=== PATIENT | female | born 1955 | race Caucasian/White ===

== ENCOUNTER 2018-10-14 16:11 | Observation (INO) ==
--- NOTE | 2018-10-14 17:00 | ED ---
HPI General Chief Complaint: Chest Pain Stated Complaint: Chest Discomfort/Palp Time Seen by Provider: 10/14/18 16:42 History of Present Illness HPI narrative: Patient is a 63-year-old female with history of breast cancer, presented to emergency room for chest pain and palpitations started 3 hours ago. Palpitations resolved, chest pain improved but still as per patient 5 out of 10. Patient denies dyspnea, anxiety, fever. As per patient heart rate was above 100. Vital signs are stable in the emergency room. Aspirin and nitroglycerin given. Related Data Home Medications Medication Instructions Recorded Confirmed ranitidine HCl [Zantac] 150 mg PO BID 10/14/18 10/14/18 zolpidem [Ambien] 10 mg PO HS PRN 10/14/18 10/14/18 Allergies Allergy/AdvReac Type Severity Reaction Status Date / Time meperidine Allergy Severe HIVES/SWELL Verified 10/14/18 16:41 ING metronidazole Allergy Severe kidneys Verified 10/14/18 16:41 shut down codeine Allergy Mild Vomiting Verified 10/14/18 16:41 penicillin G Allergy Mild Rash Verified 10/14/18 16:41 Sulfa (Sulfonamide Allergy Mild Rash Verified 10/14/18 16:41 Antibiotics) Review of Systems ROS: all other systems reviewed are negative Cardiovascular Reports chest pain and Reports rapid heart rate [facility] Medical History Medical History Breast cancer (Acute) Stomach ulcer (Acute) Surgical History Surgical History Hx of breast reconstruction (Acute) Hx of lumpectomy (Acute) Social History Social History Second Hand Smoke Exposure: No Smoking Status: Never smoker How Often Do You Have a Drink Containing Alcohol: Never Recent Travel in [facility] within the Last 8 Weeks: No Recent Out of Country Travel within the Last 8 Weeks: No Immunization History Tetanus Immunization: <5 Years Exam Narrative Exam Narrative: GENERAL: 63-year-old female in no apparent distress. SKIN: Focused skin assessment warm/dry. HEAD: Atraumatic. Normocephalic. EYES: Pupils equal and round. No scleral icterus. No injection or drainage. ENT: No nasal bleeding or discharge. Mucous membranes pink and moist. NECK: Trachea midline. No JVD. CARDIOVASCULAR: Regular rate and rhythm. No murmur appreciated. RESPIRATORY: No accessory muscle use. Clear to auscultation. Breath sounds equal bilaterally. GASTROINTESTINAL: Abdomen soft, non-tender, nondistended. Hepatic and splenic margins not palpable. MUSCULOSKELETAL: No obvious deformities. No clubbing. No cyanosis. No edema. NEUROLOGICAL: Awake and alert. No obvious cranial nerve deficits. Motor grossly within normal limits. Normal speech. PSYCHIATRIC: Appropriate mood and affect; insight and judgment normal. Course Initial Documented Vital Signs Temperature 97.9 F 10/14/18 16:42 Pulse Rate 73 10/14/18 16:42 Respiratory Rate 20 10/14/18 16:42 Blood Pressure 159/71 H 10/14/18 16:42 Pulse Oximetry 97 10/14/18 16:42 Last Documented Vital Signs Temperature 97.9 F 10/14/18 16:42 Pulse Rate 81 10/14/18 16:44 Respiratory Rate 14 10/14/18 16:44 Blood Pressure 150/70 H 10/14/18 16:44 Pulse Oximetry 100 10/14/18 16:44 Medical Decision Making MDM Narrative Medical decision making narrative: 63-year-old female presented with chest pain and palpitations, cardiac and PE workup ordered. Reevaluation is pending. Aspirin and nitroglycerin given. First set of cardiac enzymes is negative. CAT scan is negative for pulmonary embolism. Patient feels better in the emergency room, will be placed to [place] pain [place] [facility] Medical Screen Exam Complete: Yes Emergency Medical Condition: Yes Differential Diagnosis Differential Diagnosis: Chest pain rule out ACS versus PE. Lab Data Result diagrams: 10/14/18 16:45 10/14/18 16:45 Lab Results 10/14/18 10/14/18 10/14/18 Range/Units 16:45 16:45 16:45 CBC w Diff Auto diff final WBC 6.5 (4.0-11.0) th/mm3 RBC 4.32 (4.00-5.30) mil/mm3 Hgb 13.3 (11.6-15.3) gm/dL Hct 39.8 (35.0-46.0) % MCV 92.2 (80.0-100.0) fL MCH 30.7 (27.0-34.0) pg MCHC 33.3 (32.0-36.0) % RDW 12.9 (11.6-17.2) % Plt Count 248 (150-450) th/mm3 MPV 8.2 (7.0-11.0) fL Neut % (Auto) 60.0 (16.0-70.0) % Lymph % (Auto) 31.3 (9.0-44.0) % [place] % (Auto) 6.8 (0.0-8.0) % Eos % (Auto) 1.5 (0.0-4.0) % Baso % (Auto) 0.4 (0.0-2.0) % Neut # (Auto) 4.0 (1.8-7.7) th/mm3 Lymph # (Auto) 2.0 (1.0-4.8) th/mm3 [place]entry # (Auto) 0.4 (0.0-0.9) th/mm3 Eos # (Auto) 0.1 (0.0-0.4) th/mm3 Baso # (Auto) 0.0 (0.0-0.2) th/mm3 WBC Differential . Differential Comment . PT 10.0 (9.8-11.6) sec INR 1.0 Ratio APTT 26.6 (23.4-31.7) sec Sodium 139 (136-145) meq/L Potassium 3.6 (3.5-5.1) meq/L Chloride 103 (98-107) meq/L Carbon Dioxide 28.5 (21.0-32.0) meq/L Anion Gap 8 (5-15) meq/L BUN 13 (7-18) mg/dL Creatinine 0.65 (0.50-1.00) mg/dL Estimated GFR Greater than 89 (>89) mL/min Random Glucose 101 (74-106) mg/dL Calcium 8.5 (8.5-10.1) mg/dL Total Bilirubin 0.3 (0.2-1.0) mg/dL AST 21 (15-37) U/L ALT 23 (10-53) U/L Alkaline Phosphatase 86 (45-117) U/L Troponin I Less than 0.02 L (0.02-0.05) ng/mL B-Natriuretic Peptide (0-100) pg/mL Total Protein 7.7 (6.4-8.2) g/dL Albumin 4.0 (3.4-5.0) g/dL 10/14/18 Range/Units 16:45 CBC w Diff WBC (4.0-11.0) th/mm3 RBC (4.00-5.30) mil/mm3 Hgb (11.6-15.3) gm/dL Hct (35.0-46.0) % MCV (80.0-100.0) fL MCH (27.0-34.0) pg MCHC (32.0-36.0) % RDW (11.6-17.2) % Plt Count (150-450) th/mm3 MPV (7.0-11.0) fL Neut % (Auto) (16.0-70.0) % Lymph % (Auto) (9.0-44.0) % Gentry % (Auto) (0.0-8.0) % Eos % (Auto) (0.0-4.0) % Baso % (Auto) (0.0-2.0) % Neut # (Auto) (1.8-7.7) th/mm3 Lymph # (Auto) (1.0-4.8) th/mm3 Gentry # (Auto) (0.0-0.9) th/mm3 Eos # (Auto) (0.0-0.4) th/mm3 Baso # (Auto) (0.0-0.2) th/mm3 WBC Differential Differential Comment PT (9.8-11.6) sec INR Ratio APTT (23.4-31.7) sec Sodium (136-145) meq/L Potassium (3.5-5.1) meq/L Chloride (98-107) meq/L Carbon Dioxide (21.0-32.0) meq/L Anion Gap (5-15) meq/L BUN (7-18) mg/dL Creatinine (0.50-1.00) mg/dL Estimated GFR (>89) mL/min Random Glucose (74-106) mg/dL Calcium (8.5-10.1) mg/dL Total Bilirubin (0.2-1.0) mg/dL AST (15-37) U/L ALT (10-53) U/L Alkaline Phosphatase (45-117) U/L Troponin I (0.02-0.05) ng/mL B-Natriuretic Peptide 17 (0-100) pg/mL Total Protein (6.4-8.2) g/dL Albumin (3.4-5.0) g/dL Imaging Data Radiologist's impression: Chest X-Ray 10/14/18 16:54 CONCLUSION: Negative examination. Chest CTA 10/14/18 16:56 CONCLUSION: No pulmonary embolus seen. ECG Data EKG Prior to Arrival: No Attestation: I personally reviewed and interpreted this ECG as follows: Prior ECG tracings: available for review Interpretation: Normal sinus rhythm at rate [address] elevation. Discharge Plan Discharge Disposition Patient Disposition: ED Admit(ED Internal Use Only) Discharge Condition Condition: Fair Discharge Order Discharge Orders: ED Use Only Admit Order (Routine); Ordered 10/14/18 Ordered By: Sunny Palacios Physicians Team ED Provider: Sunny Palacios Primary Care Provider: Mica Burgess Rxs /Orders / Referrals /Forms Prescriptions: No Action ranitidine HCl [Zantac] 150 mg Tablet 150 mg PO BID RF: 0 zolpidem [Ambien] 10 mg Tablet 10 mg PO HS PRN (Reason: Sleep) RF: 0 Discharge Instructions Patient Printed Instructions: Chest Pain (ED) Discharge Interventions Interventions: Vital Signs Last Done: 10/14/18 16:44 Status ED Status: Admitted Observation Patient
--- NOTE | 2018-10-14 17:13 | XR ---
EXAM DATE: 10/14/2018 5:09 PM EST AGE/SEX: 63 years / Female INDICATIONS: Chest palpitations. Chest discomfort. CLINICAL DATA: This is the patient's initial encounter. Patient reports that signs and symptoms have been present for 1 day and indicates a pain score of 0/10. MEDICAL/SURGICAL HISTORY: None. None. COMPARISON: No prior exams available for comparison. FINDINGS: A single AP view of the chest demonstrates the lungs to be symmetrically aerated without evidence of mass, infiltrate or effusion. The cardiomediastinal contours are unremarkable. Osseous structures a re intact. CONCLUSION: Negative examination. Electronically signed by: Larry Wright MD Board Certified Radiologist 10/14/2018 5:11 PM EST
[2018-10-14 17:21] LABS: Baso % (Auto) 0.4 % (0.0-2.0); Eos # (Auto) 0.1 th/mm3 (0.0-0.4); Eos % (Auto) 1.5 % (0.0-4.0); Hematocrit 39.8 % (35.0-46.0); Hemoglobin 13.3 gm/dL (11.6-15.3); Lymph % (Auto) 31.3 % (9.0-44.0); Mean Corpuscular HGB Conc 33.3 % (32.0-36.0); Mean Corpuscular Hemoglobin 30.7 pg (27.0-34.0); Mean Corpuscular Volume 92.2 fL (80.0-100.0); Mean Platelet Volume 8.2 fL (7.0-11.0); Mono # (Auto) 0.4 th/mm3 (0.0-0.9); Mono % (Auto) 6.8 % (0.0-8.0); Platelet Count 248 th/mm3 (150-450); Red Blood Count 4.32 mil/mm3 (4.00-5.30); Red Cell Distribution Width 12.9 % (11.6-17.2); White Blood Count 6.5 th/mm3 (4.0-11.0)
[2018-10-14 17:31] LABS: Chloride 103 meq/L (98-107); Potassium 3.6 meq/L (3.5-5.1); Sodium 139 meq/L (136-145)
[2018-10-14 17:34] LABS: Anion Gap 8 meq/L (5-15); Blood Urea Nitrogen 13 mg/dL (7-18); Calcium 8.5 mg/dL (8.5-10.1); Carbon Dioxide 28.5 meq/L (21.0-32.0); Glucose,Random 101 mg/dL (74-106)
[2018-10-14 17:37] LABS: Alanine Aminotransferase 23 U/L (10-53); Aspartate Aminotransferase 21 U/L (15-37); Glomerular Filtration Rate Greater Than 89 mL/min (>89)
[2018-10-14 17:39] LABS: Activated Partial Thrombo Time 26.6 sec (23.4-31.7); Total Protein 7.7 g/dL (6.4-8.2)
[2018-10-14 17:40] LABS: Alkaline Phosphatase 86 U/L (45-117)
--- NOTE | 2018-10-14 18:37 | CT ---
EXAM DATE: 10/14/2018 6:30 PM EST AGE/SEX: 63 years / Female INDICATIONS: Chest pain and pressure. CLINICAL DATA: This is the patient's initial encounter. Patient reports that signs and symptoms have been present for 1 day and indicates a pain score of 6/10. MEDICAL/SURGICAL HISTORY: Carcinoma, breast. Breast augmentation. RADIATION DOSE: 10.81 CTDI (mGy) COMPARISON: [facility], CTA CHEST W 3D RECON, 12/12/2010. . TECHNIQUE: Volumetric scanning was performed using a multi-row detector CT scanner during bolus infu devon of 100 ml Omnipaque 350 (iohexol) nonionic water-soluble contrast as a single exam dose. The da ta was post processed with a variety of visualization algorithms including full volume maximum intens ity projection and sliding thin slab reformation. Using automated exposure control and adjustment of the mA and/or kV according to patient size, radiation dose was kept as low as reasonably achievable t o obtain optimal diagnostic quality images. DICOM format image data is available electronically for review and comparison. FINDINGS: Pulmonary Arteries: No filling defects are seen in the pulmonary arteries out to the subsegmental ve ssels. The left and right pulmonary arteries are normal in diameter. Lung: No infiltrates seen. Effusion: None. Mediastinum: No evidence of mediastinal or hilar adenopathy. Small calcified lymph nodes in the subc arinal region, distal right paratracheal region, and in the left hilum. Other: Clips are seen in the right upper quadrant from prior cholecystectomy. Bilateral breast impl ants are present. Clips are seen in the left axillary region. Colonic diverticula are seen in the tra nsverse colon. CONCLUSION: No pulmonary embolus seen. Electronically signed by: Alexis Carpio MD Board Certified Radiologist 10/14/2018 6:35 PM EST
[2018-10-14] MEDS ORDERED: Morphine Sulfate Inj 2 MG/ML Vial IV.PUSH ONE (18:44)
[2018-10-14] MEDS ORDERED: Bisacodyl 10 MG Supp RECTAL PRN (19:08)
[2018-10-14] MEDS: Famotidine 20 MG Tablet PO SCH (21:44)
[2018-10-14] MEDS: Senna/Docusate Sodium 8.6/50 MG Tablet PO SCH (21:44)
--- NOTE | 2018-10-15 07:35 | P.HP ---
History of Present Illness Primary Care Physician: Mica Burgess MD Chief Complaint: Palpitations and chest pain History of Present Illness: 63-year-old female with known history of diet-controlled hyperlipidemia, history of breast cancer who presented to the hospital for evaluation of palpitations or chest pain. Patient states that she was in her normal state of health when she was at work yesterday morning at approximately 10 AM he started developing palpitations and then roughly 2 hours later at noon she started developing a chest discomfort which she described as a 8/10 on pain scale. That persisted until she came to the emergency department at 4 PM yesterday. Patient indicates that they gave her nitroglycerin in the emergency department with complete resolution of the pain. Patient denied any nausea, vomiting, diaphoresis, lightheadedness, dizziness, shortness of breath, dyspnea. Denied any radiation of the pain to the neck, back, shoulder, arm. Patient is never had any cardiac workup in the past. Patient is not followed by any gre instructor. Due to the patient's presenting symptoms it was recommended by the ER physician the patient be observed in the chest pain center for further evaluation and management. - Diagnosis (1) Chest pain Review of Systems All other systems reviewed negative except as stated in HPI Cardiovascular: Reports chest pain, Reports irregular heart rhythm PMFSH - History History Provided By: Patient - Medical History Medical History: Medical History (Last Updated 10/15/18 @ 07:24 by ADY Martinez) Hyperlipemia Breast cancer Stomach ulcer - Surgical History Surgical History: Surgical History (Last Updated 10/15/18 @ 07:25 by ADY Martinez) History of cholecystectomy History of partial hysterectomy History of tonsillectomy Hx of breast reconstruction Hx of lumpectomy - Family History Family History: Family History (Last Updated 10/15/18 @ 07:26 by ADY Martinez) Father Family history of hypertension Mother Family history of pulmonary embolism Family history of atrial fibrillation - Tobacco History Second Hand Smoke Exposure: No Tobacco Use In Past 30 Days: No Smoking Status: Never smoker - Alcohol History How Often Do You Have a Drink Containing Alcohol: Monthly or less - Substance Use History Substance History: No History of Abuse - Travel History Recent Travel in the [place] Within the Last 8 Weeks: No Recent Travel Out of the Country Within the Last 8 Weeks: No - Immunization History Tetanus Immunization: <5 Years Hx Influenza Vaccine This Season: Yes Medications and Allergies Active Medications: Active Medications Al Hydroxide/Mg Hydroxide (Milk Of Magnesia Liq) 30 ml PO Q12H PRN PRN Reason: Mild Constipation Bisacodyl (Dulcolax Supp) 10 mg RECTAL DAILY PRN PRN Reason: SEVERE CONSITIPATION Famotidine (Pepcid) 20 mg PO BID [facility] Last Admin: 10/14/18 21:44 Dose: 20 mg Lactulose (Lactulose Liq) 30 ml PO DAILY PRN PRN Reason: SEVERE CONSITIPATION Nitroglycerin (Nitrostat Sl) 0.4 mg SL Q5M PRN PRN Reason: CHEST PAIN Senna/Docusate Sodium (Joy-Colace) 1 tab PO BID [facility] Last Admin: 10/14/18 21:44 Dose: 1 tab Sennosides (Senokot) 17.2 mg PO Q12H PRN PRN Reason: Moderate Constipation Sodium Chloride (Ns Flush) 2 ml IV.FLUSH UNSCH PRN PRN Reason: FLUSH AFTER USING IV ACCESS Sodium Chloride (Ns Flush) 2 ml IV.FLUSH BID [facility] Last Admin: 10/14/18 21:43 Dose: 2 ml Sodium Chloride (Ns Flush) 2 ml IV.FLUSH PRN PRN PRN Reason: FLUSH AFTER USING IV ACCESS Zolpidem Tartrate (Ambien) 10 mg PO HS PRN PRN Reason: Sleep Last Admin: 10/14/18 21:47 Dose: 10 mg Allergies Allergy/AdvReac Type Severity Reaction Status Date / Time meperidine Allergy Severe HIVES/SWELL Verified 10/14/18 16:41 ING metronidazole Allergy Severe kidneys Verified 10/14/18 16:41 shut down codeine Allergy Mild Vomiting Verified 10/14/18 16:41 penicillin G Allergy Mild Rash Verified 10/14/18 16:41 Sulfa (Sulfonamide Allergy Mild Rash Verified 10/14/18 16:41 Antibiotics) Home Medications Medication Instructions Recorded Confirmed Type ranitidine HCl [Zantac] 150 mg PO BID 10/14/18 10/14/18 History zolpidem [Ambien] 10 mg PO HS PRN 10/14/18 10/14/18 History Exam Vital signs: Vital Signs 10/14/18 16:42 10/14/18 16:44 10/14/18 18:57 Temperature 97.9 F Pulse Rate 73 81 64 Respiratory Rate 20 14 20 Blood Pressure 159/71 H 150/70 H 165/90 H Pulse Oximetry 97 100 98 10/14/18 20:00 10/14/18 20:09 10/14/18 20:30 Temperature 98.3 F Pulse Rate 69 68 67 Respiratory Rate 14 18 Blood Pressure 167/88 H 158/75 H Pulse Oximetry 98 97 10/15/18 00:00 10/15/18 04:00 Temperature 97 F L 97.2 F L Pulse Rate 81 83 Respiratory Rate 18 18 Blood Pressure 128/74 125/64 Pulse Oximetry 98 18 L Intake & Output 10/14/18 10/15/18 10/15/18 18:59 06:59 18:59 Intake Total 480 / 480 Balance 480 / 480 Weight 63 kg 68.3 kg Intake: Oral 480 / 480 Other: # Voids 2 Narrative: GENERAL: Well-developed, well-nourished, in no acute distress. alert and orientated HEENT: Head is normocephalic without any lesions or masses noted. Facial features are symmetric. Eyes: Pupils equal round reactive to light. Extraocular muscles are intact. Conjunctivae were clear. Oropharyngeal: Pharynx without any erythema edema. Tongue is midline without deviation. Buccal mucosa is moist without any masses or lesions NECK: Supple without any masses. Trachea midline no deviation. No JVD, no bruits are appreciated CARDIAC: Regular rhythm, regular rate. S1/S2 are heard. No murmurs gallops or rubs. LUNGS: Clear to auscultation bilaterally. No wheeze, rhonchi or rales. No use of accessory muscles on inspiration or expiration. ABDOMEN: Soft, nontender. Nondistended. Bowel sounds heard in all 4 quadrants. No organomegaly or masses. Negative rebound, negative guarding EXTREMITIES: No edema, pulses are equal bilaterally. No cyanosis or clubbing NEUROLOGY: Mood and affect appear appropriate. Cranial nerves II through XII grossly intact. Muscle strength 5/5 in upper and lower extremities bilaterally. Deep tendon reflexes are 2+ in upper and lower extremities bilaterally. Results - Labs CBC & Chem 7: 10/14/18 16:45 10/14/18 16:45 Labs: Laboratory Results - last 24 hr 10/14/18 10/14/18 10/14/18 16:45 16:45 16:45 CBC w Diff Auto diff final WBC 6.5 RBC 4.32 Hgb 13.3 Hct 39.8 MCV 92.2 MCH 30.7 MCHC 33.3 RDW 12.9 Plt Count 248 MPV 8.2 Neut % (Auto) 60.0 Lymph % (Auto) 31.3 [place] % (Auto) 6.8 Eos % (Auto) 1.5 Baso % (Auto) 0.4 Neut # (Auto) 4.0 Lymph # (Auto) 2.0 [place] # (Auto) 0.4 Eos # (Auto) 0.1 Baso # (Auto) 0.0 WBC Differential . Differential Comment . PT 10.0 INR 1.0 APTT 26.6 Sodium 139 Potassium 3.6 Chloride 103 Carbon Dioxide 28.5 Anion Gap 8 BUN 13 Creatinine 0.65 Estimated GFR Greater than 89 Random Glucose 101 Calcium 8.5 Total Bilirubin 0.3 AST 21 ALT 23 Alkaline Phosphatase 86 Troponin I Less than 0.02 L B-Natriuretic Peptide Total Protein 7.7 Albumin 4.0 10/14/18 10/14/18 10/15/18 16:45 19:54 01:15 CBC w Diff WBC RBC Hgb Hct MCV MCH MCHC RDW Plt Count MPV Neut % (Auto) Lymph % (Auto) [place] % (Auto) Eos % (Auto) Baso % (Auto) Neut # (Auto) Lymph # (Auto) [place] # (Auto) Eos # (Auto) Baso # (Auto) WBC Differential Differential Comment PT INR APTT Sodium Potassium Chloride Carbon Dioxide Anion Gap BUN Creatinine Estimated GFR Random Glucose Calcium Total Bilirubin AST ALT Alkaline Phosphatase Troponin I Less than 0.02 L Less than 0.02 L B-Natriuretic Peptide 17 Total Protein Albumin - Imaging Impressions Chest X-Ray 10/14/18 16:54 CONCLUSION: Negative examination. Chest CTA 10/14/18 16:56 CONCLUSION: No pulmonary embolus seen. Caprini VTE Risk Assessment Caprini VTE Risk Assessment: Moderate/High Risk (score >= 2) Caprini Risk Assessment Model: Point Value = 1 Point Value = 2 Point Value = 3 Point Value = 5 Age 41-60 Minor surgery BMI > 25 kg/m2 Swollen legs Varicose veins or History of unexplained or recurrent spontaneous Oral contraceptives or hormone replacement Sepsis (< 1 month) Serious lung disease, including pneumonia (< 1 month) Abnormal pulmonary function Acute myocardial infarction Congestive heart failure (< 1 month) History of inflammatory bowel disease Medical patient at bed rest Age 61-74 Arthroscopic surgery Major open surgery (> 45 min) Laparoscopic surgery (> 45 min) Malignancy Confined to bed (> 72 hours) Immobilizing plaster cast Central venous access Age >= 75 History of VTE Family history of VTE Factor V Leiden Prothrombin [id number] Lupus anticoagulant Anticardiolipin antibodies Elevated serum homocysteine Heparin-induced thrombocytopenia Other congenital or acquired thrombophilia Stroke (< 1 month) Elective arthroplasty Hip, pelvis, or leg fracture Acute spinal cord injury (< 1 month) Prophylaxis Regimen: Total Risk Factor Score Risk Level Prophylaxis Regimen 0-1 Low Early ambulation 2 Moderate Order ONE of the following: *Sequential Compression Device (SCD) *Heparin 5000 units SQ BID 3-4 Higher Order ONE of the following medications: *Heparin 5000 units SQ TID *Enoxaparin/Lovenox 40 mg SQ daily (WT < 150 kg, CrCl > 30 mL/min) *Enoxaparin/Lovenox 30 mg SQ daily (WT < 150 kg, CrCl > 10-29 mL/min) *Enoxaparin/Lovenox 30 mg SQ BID (WT < 150 kg, CrCl > 30 mL/min) AND/OR *Sequential Compression Device (SCD) 5 or more Highest Order ONE of the following medications: *Heparin 5000 units SQ TID (Preferred with Epidurals) *Enoxaparin/Lovenox 40 mg SQ daily (WT < 150 kg, CrCl > 30 mL/min) *Enoxaparin/Lovenox 30 mg SQ daily (WT < 150 kg, CrCl > 10-29 mL/min) *Enoxaparin/Lovenox 30 mg SQ BID (WT < 150 kg, CrCl > 30 mL/min) AND *Sequential Compression Device (SCD) Assessment and Plan - Assessment (1) Chest pain Code(s): R07.9 - Chest pain, unspecified Status: Acute - Plan Chest pain -Patient with increased risk factors to include age, hyperlipidemia -Patient has been ruled out for acute coronary event with serial cardiac enzymes that are negative -EKGs reviewed by myself which does show normal sinus rhythm without any changes -Chest x-ray and pulmonary angiogram were performed without any acute abnormalities -Exercise stress test was performed and indicated no signs of ischemia -Continue aspirin, nitroglycerin as needed -Continue monitor telemetry for any arrhythmia DVT prevention -Sequential compression devices Discharge Planning: Discharge home in stable condition Activity: Ad leandro. Diet: Healthy heart diet Medication per medication reconciliation Follow-up with primary medical doctor in 1 week
[2018-10-15] MEDS: Famotidine 20 MG Tablet PO SCH (08:49)
[2018-10-15] MEDS: Senna/Docusate Sodium 8.6/50 MG Tablet PO SCH (08:52)
[2018-10-15 09:48] VITALS: BP 128/75; PULSE 70; RESP 20; TEMP 97.1; O2SAT 97
--- NOTE | 2018-10-15 17:02 | ECG ---
Date Performed: 10/14/2018 Time Performed: 16:24:04 PTAGE: 63 years EKG: Sinus rhythm NORMAL ECG INTERPRETATION BASED ON A DEFAULT AGE OF 40 YEARS PREVIOUS TRACING : 02/04/2012 12.26 Since previous tracing, no significant change noted DOCTOR: Angelo Rocha Interpretating Date/Time 10/15/2018 17:01:37
== END 2018-10-15 12:07 | disposition home or self-care (01) ==
LOC: PHED 16:11 → PHEDA 16:11 → PH3 20:28
PROVIDERS: ADMIT Hospitalist; ATTEND Hospitalist
DX: I49.9 Cardiac arrhythmia, unspecified; R07.9 Chest pain, unspecified; Z85.3 Personal history of malignant neoplasm of breast; R00.2 Palpitations; E78.5 Hyperlipidemia, unspecified